=== PATIENT | male | born 1990 | race Hispanic/Latino ===

== ENCOUNTER → 2016-08-23 | Day surgery (SDC) | payer OTHER ==
[~2016-08-23] VITALS: Ht 167.6 cm; Wt 71.0 kg
[~2016-08-23] MED LIST: Bupivacaine-MPF 0.5% 30 mL Inj INFILTRATE ONE; Dexamethasone 4 mg/mL Inj IVPUSH PRN; Dexamethasone 4 mg/mL Inj ONE; EPHEDrine Sulfate 50 mg/mL Inj IVPUSH PRN; HYDROmorphone 1 mg/mL Inj IVPUSH PRN; Lactated Ringer's 1,000 ML IV SCH; Lactated Ringer's 500 ML IV PRN; MetoCLOpramide 5 mg/mL 2 mL Inj IVPUSH PRN; MetoCLOpramide 5 mg/mL 2 mL Inj ONE; Ondansetron 2 mg/mL 2 mL Inj IVPUSH PRN; Ondansetron 2 mg/mL 2 mL Inj ONE; Phenylephrine 10,000 mCg/mL Inj IVPUSH PRN; Propofol 10,000 mCg/mL 20 mL Inj ONE; fentaNYL-PF 50 mCg/mL 2 mL Inj IVPUSH PRN; fentaNYL-PF 50 mCg/mL 2 mL Inj ONE
[2016-08-23] MEDS: Lactated Ringer's 1,000 ML IV SCH ×2 (13:58→15:31)
[2016-08-23 14:05] VITALS: BP 118/69; PULSE 56; RESP 18; O2SAT 100
--- NOTE | 2016-08-23 15:52 | PCM.HPANE ---
Patient Data Surgeon Admitting Provider: Attending Provider:Emiliano Xiong MD Primary Care Physician:[facility] Shelton Other Provider:Marilou Zurita Anesthesia Reason for Visit Anal Fistual Ht/WT & BMI Height (Feet): 5 Height (Inches): 6 Weight (Kilograms): 70.3 Body Mass Index 24.00 Allergies Coded Allergies: No Known Allergies (Unverified , 08/23/16) Past Anesthesia History Anesthesia History: Denies:: Anesthesia Reactions, Fam Anesthesia Reaction, Fam Malignant Hypertherm, Malignant Hyperthermia Diabetes History Hx Diabetes?: No MRSA MRSA: No Medications No Active Prescriptions or Reported Meds History History of ENT Problems?: No HEENT History: Denies:: Abnormal Airway Cataracts Difficult Intubation Dysphagia Glaucoma Hearing Problem Sinus Problem TMJ Denture Type: None Teeth Condition: Within Normal Limits Hx of Heart Problems?: No Cardiovascular History: Denies:: AICD Abdominal Aortic Aneurism Atrial Fibrillation Cardiac Surgery Chest Pain Congestive Heart Failure Coronary Artery Disease Edema Heart Murmur Hypertension Irregular Heartbeat Pacemaker Peripheral Vascular Rheumatic Fever Thrombophlebitis Valvular Heart Disease Hx of Respiratory Problem?: No Respiratory History: Denies:: Asthma COPD Chest Surgery Cough Dyspnea Emphysema Hemoptysis Oxygen Administration Pneumonia Pulmonary Embolism Tuberculosis Use of C-PAP Machine Use of Inhalers / NEBS Hx Neurologic Problems?: No Hx of GI Problems?: Yes Hx of Problems?: No Male Hx: Denies:: Prostate Problems Scrotal Mass Testicular Surgery Skin History: Denies:: History Skin Disorders? Pressure Ulcers Hx Musculoskeletal Problems?: No Hx of Psycho/Social Problems?: No Hx Surgeries?: Yes (05/28/15 perianal lesion) Hx Any Other Health Problems?: Yes Other History: Positive for:: Hospitalization (2001 app) Denies:: Cancer Endocrine Disease Thyroid Disease History Blood Transfusions: Positive for:: Accept Blood Products? Denies:: Blood Transfusions Hx Diabetes: No Hx Alcohol Use: YesAlcoholic Drinks Per Day: 3-6 a weekHx Substance Use: Yes (Marijuana on occassion) Smoking Status: Current Every Day Smoker Have You Smoked inLast 12 mo: YesApprox How Many Cigarettes/day: Cigar on occassion Stop/Bang S-Snoring: Do You Snore Loudly: No T-Tired: feel tired, fatigued: No O-Obsered: Observed not breath: No P-Blood Pressure: treated: No B- Body Mass Index > 35 kg/m2: No A- Age over 50: No N- Neck Large Circumference: No G- Gender Male: Yes NANETTE Total Score: 1 Risk Assessment Category Category 1A: Patient has history of documented sleep apnea, and HAS NOT received any narcotic, sedative or anesthesia administration during this stay. Category 1B: Patient has history of documented sleep apnea, and HAS received any narcotic , sedative or anesthesia administration during this stay Category 2: Patient has SUSPECTED Obstructive Sleep Apnea, and HAS received any narcotic , sedative or anesthesia administration during this stay. Category 3: Patient has SUSPECTED Obstructive Sleep Apnea and HAS NOT received narcotic, sedative or anesthesia administration during this stay. Category 4: Outpatient in Procedural Areas with known sleep apnea or who screen positive for High Risk via the STOP/BANG questionnaire. Exam Exam General Appearance: Alert, Oriented X3, Cooperative, No Acute Distress HEENT/AIRWAY: MP 2 Lungs: Clear to Auscultation Heart: Exam Unremarkable Plan Impression Patient chart reviewed, patient interviewed and anesthestic plan with risks, benefits, and alternatives discussed, and informed consent obtained. ASA Physical Status: ASA1 Normal Healthy Anesthetic Plan: GA Bene/Risks/Altern/Consents: Yes HP Complete Prior to Induction: Yes Artem Reyes MD Aug 23, 2016 08:03
[2016-08-23 16:10] VITALS: BP 132/71; PULSE 60; RESP 16; O2SAT 100
[2016-08-23 16:15] VITALS: BP 114/73; PULSE 60; RESP 15; O2SAT 100
--- NOTE | 2016-08-23 16:18 | PCM.ANEP1 ---
Post Anesthesia PACU Phase 1 Assessment Vital Signs Vital Signs Date Time Temp Pulse Resp B/P Pulse Ox O2 Delivery O2 Flow Rate FiO2 08/23/16 14:05 36.5 56 18 118/69 100 Room Air Anesthetic Administered: GA Level of Alertness: Awake, talking HONG's with Equal Strength: Yes Pain: No Nausea or Vomiting: No CV Function & Hydration Stable: Yes Airway Device: Oxygen Delivery: Room Air Lungs: Clear to Auscultation Dermatome Level: Full Sensation PACU Phase 2 Assessment Complications: No Patient Instructions Provided: N/A Artem Reyes MD Aug 23, 2016 16:18
[2016-08-23 16:20] VITALS: BP 122/74; PULSE 55; RESP 16; O2SAT 100
[2016-08-23 16:25] VITALS: BP 118/70; PULSE 54; RESP 14; O2SAT 100
--- NOTE | 2016-08-23 16:30 | PCM.DISURG ---
Surgical Discharge Instruction Date of Service Aug 23, 2016 Dates of Hospitalization Date of Hospital Admission Providers Admitting Physician: Primary Care Physician: Deborah Schofield-[facility]ton Attending Physician: Emiliano Xiong MD Diet Discharge Diet: No restrictions Activity Discharge Activity-General: No restrictions Dressing and Incisional Care Hygiene: May shower Follow Up Plan Follow Up Plan Call at any time with questions or concerns. You do not need to schedule a follow up unless you have recurrent symptoms. Hank Ang MD Aug 23, 2016 16:30
[2016-08-23 16:50] VITALS: BP 120/70; PULSE 56; RESP 14; O2SAT 100
--- NOTE | 2016-08-23 17:11 | PCM.SURGPO ---
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 Healing perineal abscess Complications There were no periprocedural complications identified. Surgical Specimen Removed: No Specimen sent to Pathology: No Anesthetic Administered: GA Grafts, Implants: None Output, Estimated Blood Loss: 0 Blood Admin during surgery: No Attending Statement Cooky Packer listed was not medically necessary for the successful completion of the case Emiliano Xiong MD Aug 23, 2016 17:11
--- NOTE | 2016-08-24 07:31 | OP ---
[address] [address] OPERATIVE REPORT PATIENT: ADINA NERI : 1990 MR#: [id number] ADMIT: 08/23/2016 JOB ID: [id number] DATE OF SURGERY: 08/23/2016 PREOPERATIVE DIAGNOSIS(ES): Possible fistula in Ano. POSTOPERATIVE DIAGNOSIS(ES): Healing perianal abscess with a normal anus and rectum. PROCEDURE PERFORMED: Rectal examination under anesthesia. SURGEON: Emiliano Xiong MD and Hank Ang MD. INDICATIONS: This patient is a 26-year-old gentleman who underwent incision and drainage of a perianal abscess by Dr. Clemente Rooney in June 2014. Another procedure in September 2014. He then underwent excision of two perianal abscesses on May 28, 2015, by Dr. Rooney, in the operating room. He came back to see me on August 02, 2016 reporting that he felt he never completely healed with continued intermittent drainage. When I examined him in the office, I did not see any internal openings and I recommended rectal examination under anesthesia with possible fistulotomy or seton plastic placement before making based on the findings. After discussing the risks, benefits, and alternatives, he is here to have that procedure done today. PROCEDURE DETAILS: He was placed in supine position, underwent smooth induction of general anesthesia, and the perineum was prepped and draped in the usual sterile fashion. Surgical time-out was undertaken using safety checklist, and all were in agreement. When examining the perianal skin, I found what looked like a partially healed abscess site on the right lateral aspect of the area of the anal skin about 3-4 cm away without any obvious opening. Rectal examination with digital examination also with speculum showed normal mucosa without any abnormalities. I then probed the area of what looks like a healed perianal abscess site and I did not go much deeper beyond the skin at this point, I infiltrated the site with 0.5% bupivacaine and terminated the procedure. He was recovered from anesthesia and was taken to the recovery room in stable condition.
== END | disposition home or self-care (01) ==
LOC: SAS 13:37
PROVIDERS: ATTEND Student in an Organized Health Care Education/Training Program
DX: K60.3 Anal fistula (principal); F17.210 Nicotine dependence, cigarettes, uncomplicated
CPT/HCPCS: 45990; J1100; J1885; J2250; J2405; J2765; J3010; J7120